=== PATIENT | male | born 1985 | race Caucasian/White ===

== ENCOUNTER 2018-05-29 08:49 | Inpatient (IN) ==
[2018-05-29] MEDS ORDERED: Sod Chloride 0.9% Inj 1,000 ML IV.SIG SCH (09:30)
[2018-05-29] MEDS ORDERED: Sod Chloride 0.9% Inj 800 ML IV.SIG SCH (09:30)
--- NOTE | 2018-05-29 09:54 | ED ---
HPI General Chief complaint: Weakness Stated complaint: Body aches x 2 days Time Seen by Provider: 05/29/18 09:13 History of Present Illness HPI narrative: This is a 32-year-old male with a history of IV heroin use, presents today with complaints of diffuse body aches and weakness. Patient states is been present for 2 days. He reports he has pain all over. Patient also reports pain in his neck and shoulders. He denies any fevers but does state that he feels cold at times. Patient also says he has had palpitations. There is no reported vomiting but he is nauseous. There is no diarrhea. There is no dysuria, frequency, urgency. The patient does report that he has had decreased urination over the last 24 hours because he has not eaten or drink anything. Patient states he last used heroin yesterday. He denies sharing needles. Related Data Home Medications Medication Instructions Recorded Confirmed No Known Home Medications 05/29/18 05/29/18 Allergies Allergy/AdvReac Type Severity Reaction Status Date / Time No Known Allergies Allergy none Uncoded 05/29/18 09:02 Review of Systems ROS: all other systems reviewed are negative Constitutional Reports chills and Denies fever(s) Eyes Denies blurry vision and Denies eye pain ENT Reports neck pain and Reports sore throat (Secondary to dryness. He states it feels scratchy when he swallows.) Cardiovascular Reports chest pain (Pleuritic), Reports rapid heart rate, Reports palpitations and Reports dyspnea Respiratory Denies chest congestion, Denies cough, Denies hemoptysis, Reports pain on inspiration and Reports dyspnea Gastrointestinal Denies abdominal pain, Denies diarrhea, Reports nausea and Denies vomiting Genitourinary Reports other (Decreased urine output.) Musculoskeletal Reports myalgias, Reports arthralgias, Reports muscle weakness (Diffuse muscle weakness), Denies numbness and Denies tingling Neurologic Denies confusion, Denies dizziness, Denies headache(s), Denies focal weakness and Reports weakness (Diffuse) [facility] Medical History Medical History Patient denies medical problems (Acute) Patient denies significant medical history (Acute) Social History Social History Substance History: Active Abuse Second Hand Smoke Exposure: Yes Smoking Status: Current every day smoker Tobacco Type: Cigarettes How Often Do You Have a Drink Containing Alcohol: Never Recent Travel in [facility] within the Last 8 Weeks: No Recent Out of Country Travel within the Last 8 Weeks: No Substance Abuse Detail Heroin: Substance Use Type Other:: and dilaudid Substance Use Status: Active Route Used Substance Abuse: Intravenously Last Used: yesterday Immunization History Tetanus Immunization: Unsure Exam Narrative Exam Narrative: GENERAL: Young thin male in no acute respiratory distress. SKIN: Focused skin assessment warm/dry. Patient has an area of erythema and scabbing to his left face and his left chin and left lateral mouth area. He reports that he had hair that grew into his scab that he blacked out in that area. Patient has no rash or petechiae. There does appear to be track ross in his left AC area. Patient also has a red erythematous area and is volar right forearm. There is an area of eschar with no fluctuant abscess palpated below it. HEAD: Atraumatic. Normocephalic. EYES: Extraocular muscles were intact. No scleral icterus. Slight injection. No drainage. ENT: No nasal bleeding or discharge. Mucous membranes pink and dry. NECK: Trachea midline. Supple. He does have soreness to his eliezer-spinous area and shoulders and of the cervical spine. No exquisite tenderness to the spinous processes. CARDIOVASCULAR: Sinus tachycardia with a rate in the 130s. No murmur appreciated. RESPIRATORY: No accessory muscle use. Clear to auscultation. Breath sounds equal bilaterally. GASTROINTESTINAL: Abdomen soft, non-tender, nondistended. Hepatic and splenic margins not palpable. MUSCULOSKELETAL: No obvious deformities. No clubbing. No cyanosis. No edema. NEUROLOGICAL: Awake and alert. No obvious cranial nerve deficits. Motor grossly within normal limits. Normal speech. Course Initial Documented Vital Signs Temperature 99.2 F 05/29/18 08:52 Pulse Rate 141 H 05/29/18 08:52 Respiratory Rate 18 05/29/18 08:52 Blood Pressure 149/89 H 05/29/18 08:52 Pulse Oximetry 97 05/29/18 08:52 Last Documented Vital Signs Temperature 99.2 F 05/29/18 08:52 Pulse Rate 113 H 05/29/18 10:30 Respiratory Rate 20 05/29/18 10:30 Blood Pressure 124/79 05/29/18 10:30 Pulse Oximetry 95 05/29/18 10:30 Critical Care Time Critical Care Time: Yes Total Critical Care Time: 45 Attestation: Aggregate critical care time was 45 minutes. Time to perform other separately billable procedures was not included in the critical care time. My time did not include minutes spent treating any other patients simultaneously or on activities that did not directly contribute to the patient's treatment. The services I provided to this patient were to treat and/or prevent clinically significant deterioration that could result in: I provided critical care services requiring my management, as noted below: Chart data review, documentation time, medication orders and management, vital sign assessments/reviewing monitor data, ordering and reviewing lab tests, ordering and interpreting/reviewing x-rays and diagnostic studies, care of the patient and discussion of the patient with the admitting physicians. Medical Decision Making MDM Narrative Medical decision making narrative: This is a 32-year-old male with history of IV drug use, presents today with complaints of total body pain. Patient also reports chills with no fever. Patient's white blood cell count is 60,000. His sodium is 128. He has been started on the sepsis pathway. He does meet Sirs criteria. He is been started on vancomycin and Zosyn. Case was discussed with Dr. shefali Marc. Given the fact the patient is extremely ill, the patient will be moved to the main [facility]. He did request we order a CT chest and abdomen pelvis prior to the patient being transferred. Medical Screen Exam Complete: Yes Emergency Medical Condition: Yes Differential Diagnosis Differential Diagnosis: Sepsis versus endocarditis versus metabolic derangement Lab Data Result diagrams: 05/29/18 09:45 05/29/18 09:48 Lab Results 05/29/18 05/29/18 05/29/18 Range/Units 09:45 09:45 09:45 CBC w Diff Slide review pending WBC 60.5 H (4.0-11.0) th/mm3 RBC 5.02 (4.50-5.90) mil/mm3 Hgb 14.4 (13.0-17.0) gm/dL Hct 41.6 (39.0-51.0) % MCV 82.8 (80.0-100.0) fL MCH 28.6 (27.0-34.0) pg MCHC 34.5 (32.0-36.0) % RDW 13.5 (11.6-17.2) % Plt Count 349 (150-450) th/mm3 MPV 8.4 (7.0-11.0) fL WBC Differential Manual diff final Seg Neuts % (Manual) 87 H (16-70) % Band Neuts % (Manual) 9 H (0-6) % Lymphocytes % (Manual) 2 L (9-44) % Metamyelocytes % (Man) 1 (0-1) % Myelocytes % (Man) 1 H (0-0) % Abs Neuts (Manual) 59.3 H (1.8-7.7) th/mm3 Differential Comment . Platelet Estimate Normal (Normal) Platelet Morphology Normal (Normal) PT 13.4 H (9.8-11.6) sec INR 1.3 Ratio APTT 39.4 H (24.3-30.1) sec Sodium (136-145) meq/L Potassium (3.5-5.1) meq/L Chloride (98-107) meq/L Carbon Dioxide (21.0-32.0) meq/L Anion Gap (5-15) meq/L BUN (7-18) mg/dL Creatinine (0.60-1.30) mg/dL Estimated GFR (>89) mL/min POC Glucose (68-110) mg/dl Random Glucose (74-106) mg/dL Lactic Acid 1.8 (0.4-2.0) mmol/L Calcium (8.5-10.1) mg/dL Magnesium (1.5-2.5) mg/dL Total Bilirubin (0.2-1.0) mg/dL AST (15-37) U/L ALT (12-78) U/L Alkaline Phosphatase (45-117) U/L Total Creatine Kinase (39-308) U/L Troponin I (0.02-0.05) ng/mL Total Protein (6.4-8.2) g/dL Albumin (3.4-5.0) g/dL Ur Collection Type Urine Color (Yellw/Straw) Urine Clarity (Clear) Urine pH (5.0-8.5) Ur Specific [place] (1.002-1.035) Urine Protein (Neg-Trace) mg/dL Urine Glucose (UA) (Negative) mg/dL Urine Ketones (Negative) mg/dL Urine Occult Blood (Negative) Urine Nitrate (Negative) Urine Bilirubin (Negative) Urine Urobilinogen (Less than 2) mg/dL Ur Leukocyte Esterase (Negative) Urine WBC (0-5) /hpf Urine WBC Clumps (None) Ur Squamous Epith Cells (0-5) /hpf Micro UA Comment Ur Microscopic Review Urine Culture Comments 05/29/18 05/29/18 05/29/18 Range/Units 09:48 09:48 10:03 CBC w Diff WBC (4.0-11.0) th/mm3 RBC (4.50-5.90) mil/mm3 Hgb (13.0-17.0) gm/dL Hct (39.0-51.0) % MCV (80.0-100.0) fL MCH (27.0-34.0) pg MCHC (32.0-36.0) % RDW (11.6-17.2) % Plt Count (150-450) th/mm3 MPV (7.0-11.0) fL WBC Differential Seg Neuts % (Manual) (16-70) % Band Neuts % (Manual) (0-6) % Lymphocytes % (Manual) (9-44) % Metamyelocytes % (Man) (0-1) % Myelocytes % (Man) (0-0) % Abs Neuts (Manual) (1.8-7.7) th/mm3 Differential Comment Platelet Estimate (Normal) Platelet Morphology (Normal) PT (9.8-11.6) sec INR Ratio APTT (24.3-30.1) sec Sodium 128 L (136-145) meq/L Potassium 4.4 (3.5-5.1) meq/L Chloride 93 L (98-107) meq/L Carbon Dioxide 26.3 (21.0-32.0) meq/L Anion Gap 9 (5-15) meq/L BUN 16 (7-18) mg/dL Creatinine 1.10 (0.60-1.30) mg/dL Estimated GFR 78 L (>89) mL/min POC Glucose 134 H (68-110) mg/dl Random Glucose 134 H (74-106) mg/dL Lactic Acid (0.4-2.0) mmol/L Calcium 8.5 (8.5-10.1) mg/dL Magnesium 1.8 (1.5-2.5) mg/dL Total Bilirubin 1.7 H (0.2-1.0) mg/dL AST 16 (15-37) U/L ALT 31 (12-78) U/L Alkaline Phosphatase 80 (45-117) U/L Total Creatine Kinase 26 L (39-308) U/L Troponin I Less than 0.02 L (0.02-0.05) ng/mL Total Protein 7.8 (6.4-8.2) g/dL Albumin 2.9 L (3.4-5.0) g/dL Ur Collection Type Urine Color (Yellw/Straw) Urine Clarity (Clear) Urine pH (5.0-8.5) Ur Specific [place] (1.002-1.035) Urine Protein (Neg-Trace) mg/dL Urine Glucose (UA) (Negative) mg/dL Urine Ketones (Negative) mg/dL Urine Occult Blood (Negative) Urine Nitrate (Negative) Urine Bilirubin (Negative) Urine Urobilinogen (Less than 2) mg/dL Ur Leukocyte Esterase (Negative) Urine WBC (0-5) /hpf Urine WBC Clumps (None) Ur Squamous Epith Cells (0-5) /hpf Micro UA Comment Ur Microscopic Review Urine Culture Comments 05/29/18 Range/Units 10:16 CBC w Diff WBC (4.0-11.0) th/mm3 RBC (4.50-5.90) mil/mm3 Hgb (13.0-17.0) gm/dL Hct (39.0-51.0) % MCV (80.0-100.0) fL MCH (27.0-34.0) pg MCHC (32.0-36.0) % RDW (11.6-17.2) % Plt Count (150-450) th/mm3 MPV (7.0-11.0) fL WBC Differential Seg Neuts % (Manual) (16-70) % Band Neuts % (Manual) (0-6) % Lymphocytes % (Manual) (9-44) % Metamyelocytes % (Man) (0-1) % Myelocytes % (Man) (0-0) % Abs Neuts (Manual) (1.8-7.7) th/mm3 Differential Comment Platelet Estimate (Normal) Platelet Morphology (Normal) PT (9.8-11.6) sec INR Ratio APTT (24.3-30.1) sec Sodium (136-145) meq/L Potassium (3.5-5.1) meq/L Chloride (98-107) meq/L Carbon Dioxide (21.0-32.0) meq/L Anion Gap (5-15) meq/L BUN (7-18) mg/dL Creatinine (0.60-1.30) mg/dL Estimated GFR (>89) mL/min POC Glucose (68-110) mg/dl Random Glucose (74-106) mg/dL Lactic Acid (0.4-2.0) mmol/L Calcium (8.5-10.1) mg/dL Magnesium (1.5-2.5) mg/dL Total Bilirubin (0.2-1.0) mg/dL AST (15-37) U/L ALT (12-78) U/L Alkaline Phosphatase (45-117) U/L Total Creatine Kinase (39-308) U/L Troponin I (0.02-0.05) ng/mL Total Protein (6.4-8.2) g/dL Albumin (3.4-5.0) g/dL Ur Collection Type Clean catch Urine Color Yellow (Yellw/Straw) Urine Clarity Clear (Clear) Urine pH 5.5 (5.0-8.5) Ur Specific [place] 1.010 (1.002-1.035) Urine Protein Negative (Neg-Trace) mg/dL Urine Glucose (UA) Negative (Negative) mg/dL Urine Ketones Negative (Negative) mg/dL Urine Occult Blood Negative (Negative) Urine Nitrate Negative (Negative) Urine Bilirubin Negative (Negative) Urine Urobilinogen 0.2 (Less than 2) mg/dL Ur Leukocyte Esterase Negative (Negative) Urine WBC 6-8 H (0-5) /hpf Urine WBC Clumps Occasional H (None) Ur Squamous Epith Cells 0-5 (0-5) /hpf Micro UA Comment Culture indicated Ur Microscopic Review Microscopic reviewed Urine Culture Comments Culture indicated Imaging Data Radiologist's impression: Chest X-Ray 05/29/18 09:24 CONCLUSION: No acute cardiopulmonary disease. Chest CT 05/29/18 11:13 CONCLUSION: 1. No focal pneumonia identified. 2. Mildly enlarged nodes in the axillary eulalia chain. There is a 2 cm node in the right axilla. There is a 1.6 cm node in the left axilla. Discharge Plan Discharge Disposition Patient Disposition: 30 Still Patient Discharge Details Diagnosis: Sepsis, Hyponatremia, Drug abuse, IV, Cellulitis of forearm, right Physicians Team ED Provider: Charly Munoz Primary Care Provider: Patrick Turner Attending Provider: Zaire Marc Discharge Interventions Interventions: Vital Signs Last Done: 05/29/18 10:30 Status ED Status: Admitted Patient
--- NOTE | 2018-05-29 10:16 | XR ---
EXAM DATE: 05/29/2018 10:12 AM EDT AGE/SEX: 32 years / Male INDICATIONS: General weakness. CLINICAL DATA: This is the patient's initial encounter. Patient reports that signs and symptoms have been present for 2 days and indicates a pain score of 8/10. MEDICAL/SURGICAL HISTORY: . Patient states weakness and pain all over for two days. No history of heart or lung problems. None. COMPARISON: No prior exams available for comparison. FINDINGS: A single AP view of the chest demonstrates the lungs to be symmetrically aerated without evidence of mass, infiltrate or effusion. The cardiomediastinal contours are unremarkable. Osseous structures a re intact. CONCLUSION: No acute cardiopulmonary disease. Electronically signed by: Dano Joiner MD 05/29/2018 10:15 AM EDT
[2018-05-29 10:21] LABS: Chloride 93 meq/L (98-107); Potassium 4.4 meq/L (3.5-5.1); Sodium 128 meq/L (136-145)
[2018-05-29 10:21] LABS: Hematocrit 41.6 % (39.0-51.0); Hemoglobin 14.4 gm/dL (13.0-17.0); Mean Corpuscular HGB Conc 34.5 % (32.0-36.0); Mean Corpuscular Hemoglobin 28.6 pg (27.0-34.0); Mean Corpuscular Volume 82.8 fL (80.0-100.0); Mean Platelet Volume 8.4 fL (7.0-11.0); Platelet Count 349 th/mm3 (150-450); Red Blood Count 5.02 mil/mm3 (4.50-5.90); Red Cell Distribution Width 13.5 % (11.6-17.2); White Blood Count 60.5 th/mm3 (4.0-11.0)
[2018-05-29 10:24] LABS: Albumin 2.9 g/dL (3.4-5.0); Anion Gap 9 meq/L (5-15); Calcium 8.5 mg/dL (8.5-10.1); Carbon Dioxide 26.3 meq/L (21.0-32.0); Glucose,Random 134 mg/dL (74-106); Magnesium 1.8 mg/dL (1.5-2.5)
[2018-05-29] MEDS ORDERED: Morphine Inj 4 MG/ML Vial IV.PUSH ONE (10:24)
[2018-05-29 10:25] LABS: Blood Urea Nitrogen 16 mg/dL (7-18)
[2018-05-29 10:26] LABS: Activated Partial Thrombo Time 39.4 sec (24.3-30.1); INR 1.3 Ratio; Prothrombin Time 13.4 sec (9.8-11.6)
[2018-05-29 10:27] LABS: Alanine Aminotransferase 31 U/L (12-78); Aspartate Aminotransferase 16 U/L (15-37)
[2018-05-29 10:28] LABS: Glomerular Filtration Rate 78 mL/min (>89)
[2018-05-29 10:29] LABS: Total Protein 7.8 g/dL (6.4-8.2)
[2018-05-29 10:30] LABS: Alkaline Phosphatase 80 U/L (45-117)
[2018-05-29 10:37] LABS: Creatine Kinase 26 U/L (39-308)
[2018-05-29 10:42] LABS: Bilirubin,Urine Negative (Negative); Clarity,Urine Clear (Clear); Color,Urine Yellow (Yellw/Straw); Glucose,Urine (UA) Negative (Negative); Leukocyte Esterase,Urine Negative (Negative); Nitrite,Urine Negative (Negative); PH,Urine 5.5 (5.0-8.5); Urobilinogen,Urine 0.2 mg/dL (Less than 2)
[2018-05-29 10:48] LABS: Squamous Epithelial Cell,Urine 0-5 /hpf (0-5)
[2018-05-29] MEDS ORDERED: Piperacil/Tazo 4.5 GM Premix 4.5 GM/100 ML BAG IV.SIG ONE (10:55)
[2018-05-29] MEDS ORDERED: Vancomycin Inj 1 GM/200 ML PIGGYBACK IV.SIG ONE (10:55)
[2018-05-29 11:02] LABS: Lymphocytes 2 % (9-44); Metamyelocytes 1 % (0-1); Myelocytes 1 % (0-0)
[2018-05-29 11:03] LABS: Platelet Estimate Normal (Normal); Platelet Morphology Normal (Normal)
[2018-05-29] MEDS ORDERED: Vancomycin Inj 1,000 MG in Sodium Chlor 0.9% Inj 250 ML IV.SIG ONE (12:00)
--- NOTE | 2018-05-29 12:06 | CT ---
EXAM DATE: 05/29/2018 11:58 AM EDT AGE/SEX: 32 years / Male INDICATIONS: Body aches, cough and fever. WBC = 60.5 CLINICAL DATA: This is the patient's initial encounter. Patient reports that signs and symptoms have been present for 2 days and indicates a pain score of 8/10. MEDICAL/SURGICAL HISTORY: None. None. RADIATION DOSE: 7.09 CTDI (mGy) ; Combined studies COMPARISON: No prior exams available for comparison. TECHNIQUE: Multiple contiguous axial images were obtained through the chest during bolus infusion of 95 ml Omnipaque 350 (iohexol) nonionic water-soluble contrast as a cumulative dose for multiple exa ms. Images were obtained in suspended respiration using multiple row detector helical technique. U sing automated exposure control and adjustment of the mA and/or kV according to patient size, radiati on dose was kept as low as reasonably achievable to obtain optimal diagnostic quality images. DICOM format image data is available electronically for review and comparison. FINDINGS: Lungs: The lungs are symmetrically aerated. No infiltrates or nodular densities are seen. Mediastinum: There is good visualization of the great vessels of the middle mediastinum. No evidenc e of mediastinal or hilar adenopathy/mass. Pleurae: No evidence of focal thickening or pleural effusion. Axillae: The examination demonstrates a single 2 cm node in the right axilla. There is a 1.6 cm node in the left axilla This is nonspecific in appearance. Bony Structures: Unremarkable. Miscellaneous: The examination was extended to include the upper abdomen, and both adrenal glands ar e normal in size and configuration. Post Contrast: No abnormal areas of enhancement seen. CONCLUSION: 1. No focal pneumonia identified. 2. Mildly enlarged nodes in the axillary eulalia chain. There is a 2 cm node in the right axilla. Ther e is a 1.6 cm node in the left axilla. Electronically signed by: Rico Oleary MD 05/29/2018 12:04 PM EDT
--- NOTE | 2018-05-29 12:30 | CT ---
EXAM DATE: 05/29/2018 11:58 AM EDT AGE/SEX: 32 years / Male INDICATIONS: Body aches, cough and fever. WBC = 60.5 CLINICAL DATA: This is the patient's initial encounter. Patient reports that signs and symptoms have been present for 2 days and indicates a pain score of 9/10. MEDICAL/SURGICAL HISTORY: None. None. ORAL CONTRAST: No oral contrast ingested. RADIATION DOSE: 7.09 CTDI (mGy) COMPARISON: No prior exams available for comparison. TECHNIQUE: Multiple contiguous axial images were obtained through the abdomen and pelvis following b olus infusion of 7.09 ml Omnipaque 350 (iohexol) nonionic water-soluble contrast as a cumulative do se for multiple exams. No oral contrast ingested. Using automated exposure control and adjustment of the mA and/or kV according to patient size, radiation dose was kept as low as reasonably achievable to obtain optimal diagnostic quality images. DICOM format image data is available electronically for review and comparison. FINDINGS: Lower Lungs: The visualized lower lungs are clear. Liver: The liver has a homogeneous density without space-occupying lesion. There is no dilation of th e biliary tree. The gallbladder is unremarkable in appearance. Spleen: Homogeneous density without enlargement. Pancreas: Unremarkable without mass or calcification. Kidneys: Normal in size and shape. There is a wedge-shaped area of decreased attenuation involving t he posterior lateral right mid kidney. There is overlying cortical thinning. There are no renal calcu li. No evidence of mass or hydronephrosis. Adrenal Glands: Unremarkable. Aorta: The aorta and proximal iliac vessels are grossly unremarkable without aneurysmal dilation. Bowel/Mesentery: No oral contrast was given limiting the sensitivity of the exam. The bowel loops ar e grossly unremarkable. The cecum and sigmoid colon have a normal configuration. Abdominal Wall: Intact. Retroperitoneum: No evidence of adenopathy in the retrocrural, para-aortic, or deep pelvic regions. Bladder: Contours are smooth. Reproductive Organs: No abnormal masses or calcifications seen. Inguinal: The inguinal region is unremarkable without evidence of adenopathy. Bony Structures: Unremarkable. CONCLUSION: 1. Focal wedge-shaped area of decreased attenuation involving the posterior lateral right mid knee w ith overlying apparent cortical thinning. This is nonspecific and could represent an area of scarring or infarction. The kidneys are otherwise unremarkable. 2. Unremarkable bowel gas pattern. 3. Unremarkable appearing gallbladder. Electronically signed by: Dano Joiner MD 05/29/2018 12:29 PM EDT
[2018-05-29] MEDS ORDERED: Bisacodyl 10 MG Supp RECTAL PRN (12:34)
[2018-05-29] MEDS ORDERED: Acetaminophen 325 MG Tablet PO PRN (12:34)
--- NOTE | 2018-05-29 13:21 | ECG ---
Date Performed: 05/29/2018 Time Performed: 09:01:09 PTAGE: 32 years EKG: SINUS TACHYCARDIA WITH SHORT SD INTERVAL NONSPECIFIC ST & T-WAVE ABNORMALITY ABNORMAL ECG I NTERPRETATION BASED ON A DEFAULT AGE OF 40 YEARS PREVIOUS TRACING : 06/11/2008 22.32 DOCTOR: Rustam Romo Interpretating Date/Time 05/29/2018 13:19:25
--- NOTE | 2018-05-29 13:52 | ECHRPT ---
Indication: Sepsis Possible Endocarditis CONCLUSIONS No regional wall motion abnormalities are present. Normal left ventricular size. Wall thickness is n ormal. The left ventricular systolic function is normal with an estimated ejection fraction in the range of 60-65%. There is trace tricuspid valve regurgitation. The estimated pulmonary arterial pressure is 38 mmHg. BP: / HR: Rhythm: MEASUREMENTS (Male / Female) Normal Values Technical Quality:Good 2D ECHO LV Diastolic Diameter PLAX 4.6 cm 4.2 - 5.9 / 3.9 - 5.3 cm LV Systolic Diameter PLAX 3.0 cm IVS Diastolic Thickness 0.8 cm 0.6 - 1.0 / 0.6 - 0.9 cm LVPW Diastolic Thickness 0.8 cm 0.6 - 1.0 / 0.6 - 0.9 cm LV Relative Wall Thickness 0.3 RV Internal Dim ED PLAX 2.3 cm LVOT Diameter 1.9 cm Aortic Root Diameter 2.4 cm LA Systolic Diameter LX 3.0 cm 3.0 - 4.0 / 2.7 - 3.8 cm M-MODE AV Cusp Separation MM 1.6 cm DOPPLER AV Peak Velocity 164.0 cm/s AV Peak Gradient 10.8 mmHg LVOT Peak Velocity 132.0 cm/s LVOT Peak Gradient 7.0 mmHg AV Area Cont Eq pk 2.3 cm Mitral E Point Velocity 93.3 cm/s Mitral A Point Velocity 65.2 cm/s Mitral E to A Ratio 1.4 LV E' Lateral Velocity 14.9 cm/s Mitral E to LV E' Lateral Ratio 6.3 LV E' Septal Velocity 14.4 cm/s Mitral E to LV E' Septal Ratio 6.5 TR Peak Velocity 262.0 cm/s TR Peak Gradient 27.5 mmHg Right Atrial Pressure 10.0 mmHg Pulmonary Artery Systolic Pressu 37.5 mmHg Right Ventricular Systolic Press 37.5 mmHg PV Peak Velocity 130.0 cm/s PV Peak Gradient 6.8 mmHg FINDINGS LEFT VENTRICLE No regional wall motion abnormalities are present. Normal left ventricular size. Wall thickness is n ormal. The left ventricular systolic function is normal with an estimated ejection fraction in the range of 60-65%. RIGHT VENTRICLE Normal right ventricular size and systolic function. LEFT ATRIUM The left atrial size is normal. RIGHT ATRIUM The right atrial size is normal. ATRIAL SEPTUM Normal atrial septal thickness without atrial level shunting by limited color doppler interrogation. AORTA The aortic root and proximal ascending aorta are normal in size on limited imaging. MITRAL VALVE Structurally normal mitral valve. No mitral valve stenosis or regurgitation. AORTIC VALVE Trileaflet aortic valve. No aortic valve stenosis or regurgitation. TRICUSPID VALVE There is trace tricuspid valve regurgitation. The estimated pulmonary arterial pressure is 38 mmHg. PULMONARY VALVE No pulmonary valve regurgitation or stenosis. VESSELS The inferior vena cava is normal in size. PERICARDIUM No pericardial effusion. Dimitri Beal MD (Electronically Signed) Final Date:29 May 2018 13:51
[2018-05-29] MEDS ORDERED: Potassium Phosphate 500 MG Soluble Tablet PO PRN ×2 (19:35)
[2018-05-29] MEDS ORDERED: Potassium Chlor 20 mEq Premix 20 MEQ/100 ML PIGGYBACK IV.SIG PRN ×2 (19:35)
[2018-05-29] MEDS ORDERED: Magnesium Sulfate Inj 4 GM in Sodium Chlor 0.9% Inj 92 ML IV.SIG PRN (19:35)
[2018-05-29] MEDS ORDERED: Magnesium Oxide 400 MG Tablet PO PRN (19:35)
[2018-05-29] MEDS ORDERED: Potassium Chlor 40 mEq Premix 40 MEQ/100 ML PIGGYBACK IV.SIG PRN ×2 (19:35)
[2018-05-29] MEDS ORDERED: Magnesium Sulfate Inj 2 GM in Sodium Chlor 0.9% Inj 96 ML IV.SIG PRN (19:35)
[2018-05-29] MEDS ORDERED: Potassium Chloride 25 MEQ Effervescent Tablet PO PRN (19:35)
[2018-05-29] MEDS ORDERED: Sodium Phosphate Inj 30 MMOL in Sodium Chlor 0.9% Inj 250 ML IV.SIG PRN (19:35)
[2018-05-29] MEDS ORDERED: Potassium Phosphate Inj 30 MMOL in Sodium Chlor 0.9% Inj 250 ML IV.SIG PRN (19:35)
--- NOTE | 2018-05-29 19:46 | P.HPCC ---
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 He admits that last injection of heroin was yesterday. Denies fever however felt palpitations. Had been ill for last 2 days. Patient was tachycardic in the ER. White count was 60.5 with left shift. Sodium was 128. Patient also has a superficial abscess right forearm volar aspect. CT of the abdomen shows probable right kidney infarct. Clinical picture consistent with probable infective endocarditis and severe sepsis and critical care medicine was consulted for admission. A 2D echo done in [place] emergency department shows normal EF and no vegetations reported. ANTHONY had been ordered I evaluated the patient in the ICU. He appears critically ill malnourished tachycardic. He received total 2 L normal saline bolus and now receiving maintenance IV fluids. He had been started on vancomycin and Zosyn. ID had been consulted, I will get a ANTHONY. At this time he is very critical we will watch closely for withdrawal also. - Diagnosis (1) Severe sepsis (2) Infarction of kidney (3) Leukocytosis (4) Abscess of right forearm (5) Cellulitis of forearm, right Inpatient Certification: I certify that the inpatient services were ordered in accordance with Medicare regulations governing the order. This includes certification that hospital inpatient services are reasonable and necessary and in the case of services not specified as inpatient-only under 42 CFR 419.22(n), that they are appropriately provided as inpatient services in accordance to with the 2-midnight benchmark under 43 CFR 412.3(e) Estimated Total Length of Stay (Days): 7 Plans for Post Hospital Care: Not yet determined Review of Systems All other systems reviewed negative except as stated in HPI PMFSH - History History Provided By: Patient - Medical History Medical History: Medical History (Last Updated 05/29/18 @ 09:03 by Lucila Lyon RN) Patient denies medical problems Patient denies significant medical history - Tobacco History Second Hand Smoke Exposure: Yes Tobacco Use In Past 30 Days: Yes Smoking Status: Current every day smoker Tobacco Type: Cigarettes - Alcohol History How Often Do You Have a Drink Containing Alcohol: Never - Substance Use History Substance History: No History of Abuse, Active Abuse - Substance Use Type Heroin Type: and dilaudid Status: Active Route Used: Intravenously Last Used: yesterday Reason for Use: Get High - Travel History Recent Travel in the [place] Within the Last 8 Weeks: No Recent Travel Out of the Country Within the Last 8 Weeks: No - Immunization History Tetanus Immunization: Unsure Medications and Allergies Active Medications: Active Medications Acetaminophen (Tylenol) 650 mg PO Q6H PRN PRN Reason: PAIN 1-10 AND/OR FEVER >101F Al Hydroxide/Mg Hydroxide (Milk Of [place]) 30 ml PO Q12H PRN PRN Reason: Mild Constipation Albuterol (Duoneb Neb (Prn)) 1 ampul NEB Q2HR NEB PRN PRN Reason: WHEEZING Bisacodyl (Dulcolax Supp) 10 mg RECTAL DAILY PRN PRN Reason: SEVERE CONSITIPATION Chlorhexidine Gluconate (Chlorhexidine 2% Cloth) 3 pack TOPICAL DAILY@0400 TOSHIA Stop: 06/04/18 03:59 Chlorhexidine Gluconate (Chlorhexidine 2% Cloth) 3 pack TOPICAL DAILY@0400 PRN PRN Reason: Extra cloth needed Stop: 06/04/18 03:59 Famotidine (Pepcid) 20 mg PO BID TOSHIA Sodium Chloride (Ns Inj) 1,000 mls @ 0 mls/hr IV.SIG .Q0M TOSHIA Last Infusion: 05/29/18 10:37 Dose: Infused Sodium Chloride (Ns Inj) 800 mls @ 0 mls/hr IV.SIG .Q0M TOSHIA Last Infusion: 05/29/18 11:26 Dose: Infused Potassium Chloride/Sodium Chloride (Ns + Kcl 20 Meq Inj) 1,000 mls @ 150 mls/ hr IV.CONT .Q6H40M TOSHIA Last Admin: 05/29/18 13:43 Dose: 150 mls/hr Piperacillin/Tazobactam/Dextrose (Zosyn 4.5 Gm Premix) 4.5 gm in 100 mls @ 200 mls/hr IV.SIG Q6H TOSHIA Vancomycin HCl 1,500 mg/ (Sodium Chloride) 515 mls @ 250 mls/hr IV.SIG Q12H TOSHIA Potassium Chloride (Kcl 40 Meq Premix Inj) 40 meq in 100 mls @ 25 mls/hr IV.SIG Q2H PRN PRN Reason: For Potassium 2.8 - 3.2 mEq/L Potassium Chloride (Kcl 20 Meq Premix Inj) 20 meq in 100 mls @ 50 mls/hr IV.SIG Q2H PRN PRN Reason: For Potassium 3.3 - 3.5 mEq/L Potassium Chloride (Kcl 40 Meq Premix Inj) 40 meq in 100 mls @ 25 mls/hr IV.SIG UNSCH PRN PRN Reason: For Potassium 3.3 - 3.5 mEq/L Sodium Phosphate 30 mmol/ (Sodium Chloride) 260 mls @ 42 mls/hr IV.SIG UNSCH PRN PRN Reason: For Phosphorus < 2.5 mg/dL Potassium Phosphate 30 mmol/ (Sodium Chloride) 260 mls @ 42 mls/hr IV.SIG UNSCH PRN PRN Reason: SEE LABEL COMMENTS Magnesium Sulfate 4 gm/ Sodium (Chloride) 100 mls @ 50 mls/hr IV.SIG UNSCH PRN PRN Reason: For Magnesium 0.9 - 1.1 mg/dL Potassium Chloride (Kcl 20 Meq Premix Inj) 20 meq in 100 mls @ 50 mls/hr IV.SIG Q2H PRN PRN Reason: For Potassium 2.8 - 3.2 mEq/L Magnesium Sulfate 2 gm/ Sodium (Chloride) 100 mls @ 50 mls/hr IV.SIG UNSCH PRN PRN Reason: For Magnesium 1.2 - 1.6 mg/dL Lactulose (Lactulose Liq) 30 ml PO DAILY PRN PRN Reason: SEVERE CONSITIPATION Magnesium Oxide (Mag-Ox) 800 mg PO UNSCH PRN PRN Reason: For Magnesium 1.2 - 1.6 mg/dL Ondansetron HCl (Zofran Inj) 4 mg IV.PUSH Q6H PRN PRN Reason: NAUSEA OR VOMITING Oxycodone/Acetaminophen (Percocet 5/325 Mg) 2 tab PO Q4H PRN PRN Reason: PAIN SCALE 1 TO 5 Last Admin: 05/29/18 17:05 Dose: 2 tab Potassium Bicarb/Potassium Chloride (K-Lyte Cl Eff) 50 meq PO UNSCH PRN PRN Reason: For Potassium 3.3 - 3.5 mEq/L Potassium Phosphate (K-Phos Original) 2,000 mg PO Q4H PRN PRN Reason: Phosphorus Less Than 2.5 mg/dL Potassium Phosphate (K-Phos Original) 2,000 mg PO UNSCH PRN PRN Reason: SEE LABEL COMMENTS Senna/Docusate Sodium (Leonor-Colace) 1 tab PO BID TOSHIA Sennosides (Senokot) 17.2 mg PO Q12H PRN PRN Reason: Moderate Constipation Sodium Chloride (Ns Flush) 2 ml IV.FLUSH BID TOSHIA Sodium Chloride (Ns Flush) 2 ml IV.FLUSH PRN PRN PRN Reason: FLUSH AFTER USING IV ACCESS Allergies Allergy/AdvReac Type Severity Reaction Status Date / Time No Known Allergies Allergy none Uncoded 05/29/18 14:40 Home Medications Medication Instructions Recorded Confirmed Type No Known Home Medications 05/29/18 05/29/18 History Results - Labs CBC & Chem 7: 05/29/18 09:45 05/29/18 09:48 Labs: Short CBC 05/29/18 Range/Units 09:45 WBC 60.5 H (4.0-11.0) th/mm3 Hgb 14.4 (13.0-17.0) gm/dL Hct 41.6 (39.0-51.0) % Plt Count 349 (150-450) th/mm3 BMP 05/29/18 09:48 Sodium 128 L Potassium 4.4 Chloride 93 L Carbon Dioxide 26.3 BUN 16 Creatinine 1.10 Calcium 8.5 Cardiac Enzymes 05/29/18 Range/Units 09:48 Total Creatine Kinase 26 L (39-308) U/L Troponin I Less than 0.02 L (0.02-0.05) ng/mL Liver Function 05/29/18 Range/Units 09:48 Total Bilirubin 1.7 H (0.2-1.0) mg/dL AST 16 (15-37) U/L ALT 31 (12-78) U/L Alkaline Phosphatase 80 (45-117) U/L Albumin 2.9 L (3.4-5.0) g/dL Urine 05/29/18 Range/Units 10:16 Urine Color Yellow (Yellw/Straw) Urine Clarity Clear (Clear) Urine pH 5.5 (5.0-8.5) Ur Specific [place] 1.010 (1.002-1.035) Urine Protein Negative (Neg-Trace) mg/dL Urine Glucose (UA) Negative (Negative) mg/dL - Imaging Impressions Chest X-Ray 05/29/18 09:24 CONCLUSION: No acute cardiopulmonary disease. Abdomen/Pelvis CT 05/29/18 11:13 CONCLUSION: 1. Focal wedge-shaped area of decreased attenuation involving the posterior lateral right mid knee with overlying apparent cortical thinning. This is nonspecific and could represent an area of scarring or infarction. The kidneys are otherwise unremarkable. 2. Unremarkable bowel gas pattern. 3. Unremarkable appearing gallbladder. Chest CT 05/29/18 11:13 CONCLUSION: 1. No focal pneumonia identified. 2. Mildly enlarged nodes in the axillary eulalia chain. There is a 2 cm node in the right axilla. There is a 1.6 cm node in the left axilla. Exam Vital signs: Vital Signs 05/29/18 08:52 05/29/18 09:05 05/29/18 09:24 Temperature 99.2 F Pulse Rate 141 H 133 H 130 H Respiratory Rate 18 20 Blood Pressure 149/89 H 135/84 Pulse Oximetry 97 99 97 05/29/18 10:30 05/29/18 12:35 05/29/18 14:27 Temperature 98.8 F Pulse Rate 113 H 103 H 106 H Respiratory Rate 20 16 16 Blood Pressure 124/79 115/56 L 102/58 L Pulse Oximetry 95 96 05/29/18 15:30 05/29/18 16:30 05/29/18 17:30 Temperature 98.3 F Pulse Rate 114 H 112 H 116 H Respiratory Rate 20 16 16 Blood Pressure 112/67 112/58 L 119/66 Pulse Oximetry 97 95 96 05/29/18 18:30 Temperature Pulse Rate 110 H Respiratory Rate 16 Blood Pressure 103/56 L Pulse Oximetry 95 Intake & Output 05/29/18 05/29/18 05/30/18 06:59 18:59 06:59 Intake Total 2149 / 0 Balance 215 / 2149 Weight 58.6 kg 59.1 kg Intake: IV 2149 / 2149 Zosyn 4.5 GM Premix 4.5 gm In 100 / 100 100 ml @ 200 mls/hr IV.SIG ONCE ONE Rx#:[id number] NS Inj 800 ML @ Wide Open IV. 1800 / 1800 SIG .Q0M TOSHIA Rx#:[id number] Vancomycin Inj 1,000 MG In NS 250 / 250 Inj 250 ML @ 250 mls/hr IV.SIG ONCE ONE Rx#:[id number] Other: Weight On Admission 59.1 kg Narrative: GENERAL: Young poorly nourished male who appears ill SKIN: warm/dry. Track ross in his right and left AC area. Skin blister/ abscess volar right forearm. HEAD: Atraumatic. Normocephalic. EYES: Extraocular muscles were intact. No scleral icterus. ENT: Oral mucosa is dry NECK: Trachea midline. Supple. CARDIOVASCULAR: Sinus tachycardia with a rate in the 120s. Systolic murmur at the left sternal border RESPIRATORY: No accessory muscle use. Clear to auscultation. Breath sounds equal bilaterally. GASTROINTESTINAL: Abdomen soft, non-tender, nondistended. Hepatic and splenic margins not palpable. MUSCULOSKELETAL: See skin exam above no obvious deformities. No clubbing. No cyanosis. No edema. NEUROLOGICAL: Awake and alert. No obvious cranial nerve deficits. Motor grossly within normal limits. Normal speech. Septic Shock Reassessment Septic shock perfusion: reassessment completed Caprini VTE Risk Assessment Caprini VTE Risk Assessment: Moderate/High Risk (score >= 2) Caprini Risk Assessment Model: Point Value = 1 Point Value = 2 Point Value = 3 Point Value = 5 Age 41-60 Minor surgery BMI > 25 kg/m2 Swollen legs Varicose veins or History of unexplained or recurrent spontaneous Oral contraceptives or hormone replacement Sepsis (< 1 month) Serious lung disease, including pneumonia (< 1 month) Abnormal pulmonary function Acute myocardial infarction Congestive heart failure (< 1 month) History of inflammatory bowel disease Medical patient at bed rest Age 61-74 Arthroscopic surgery Major open surgery (> 45 min) Laparoscopic surgery (> 45 min) Malignancy Confined to bed (> 72 hours) Immobilizing plaster cast Central venous access Age >= 75 History of VTE Family history of VTE Factor V Leiden Prothrombin [id number] Lupus anticoagulant Anticardiolipin antibodies Elevated serum homocysteine Heparin-induced thrombocytopenia Other congenital or acquired thrombophilia Stroke (< 1 month) Elective arthroplasty Hip, pelvis, or leg fracture Acute spinal cord injury (< 1 month) Prophylaxis Regimen: Total Risk Factor Score Risk Level Prophylaxis Regimen 0-1 Low Early ambulation 2 Moderate Order ONE of the following: *Sequential Compression Device (SCD) *Heparin 5000 units SQ BID 3-4 Higher Order ONE of the following medications: *Heparin 5000 units SQ TID *Enoxaparin/Lovenox 40 mg SQ daily (WT < 150 kg, CrCl > 30 mL/min) *Enoxaparin/Lovenox 30 mg SQ daily (WT < 150 kg, CrCl > 10-29 mL/min) *Enoxaparin/Lovenox 30 mg SQ BID (WT < 150 kg, CrCl > 30 mL/min) AND/OR *Sequential Compression Device (SCD) 5 or more Highest Order ONE of the following medications: *Heparin 5000 units SQ TID (Preferred with Epidurals) *Enoxaparin/Lovenox 40 mg SQ daily (WT < 150 kg, CrCl > 30 mL/min) *Enoxaparin/Lovenox 30 mg SQ daily (WT < 150 kg, CrCl > 10-29 mL/min) *Enoxaparin/Lovenox 30 mg SQ BID (WT < 150 kg, CrCl > 30 mL/min) AND *Sequential Compression Device (SCD) Assessment and Plan - Problem List (1) Severe sepsis Code(s): A41.9 - Sepsis, unspecified organism; R65.20 - Severe sepsis without septic shock Status: Acute (2) Infarction of kidney Code(s): N28.0 - Ischemia and infarction of kidney Status: Acute (3) Leukocytosis Code(s): D72.829 - Elevated white blood cell count, unspecified Status: Acute (4) Abscess of right forearm Code(s): L02.413 - Cutaneous abscess of right upper limb Status: Acute (5) Cellulitis of forearm, right Code(s): L03.113 - Cellulitis of right upper limb Status: Acute - Assessment and Plan Plan: NEURO: IV heroin use -Admits to daily heroin use -Watch closely for withdrawal -Need counseling/treatment -Supplement multivitamin thiamine -CT of the head to evaluate for septic emboli RESP: -DuoNeb every 2 hours as needed -Aggressive pulmonary toilet CV: Sinus tachycardia SIRS Suspected infective endocarditis -Normal saline IV fluids 2 L bolus and maintenance fluid at 84 mL/h -2D echo shows normal ejection fraction, trace TR -ANTHONY ordered to rule out infective endocarditis -Antibiotics as below GI: -N.p.o. until clinically more stable, IV famotidine : Right renal infarct Hyponatremia -Monitor renal function closely. -IV hydration as above -Low-sodium correction ID: Severe sepsis Suspected infective endocarditis Right forearm abscess -Antibiotics with vancomycin and Zosyn -Blood cultures have been ordered, ID consult -If right forearm abscess not improving with antibiotics will need hand surgery evaluation for I&D -Abscess appears superficial HEME: Leukocytosis secondary to sepsis -Monitor CBC, coags ENDO: -Electrolyte replacement per protocol PROPH: -Bilateral lower extremity SCDs. Lovenox if CT head is negative/famotidine LINES: -Utilize peripheral IVs, central line if needed CC time 42 min Code Status: Full Discussed Condition With: Dr. Munoz H&P: Quality - VTE Deep Vein Thrombosis/Pulmonary Embolism Present on Admission: No
[2018-05-29] MEDS: Piperacil/Tazo 4.5 GM Premix 4.5 GM/100 ML BAG IV.SIG SCH (19:56)
[2018-05-29] MEDS: Senna/Docusate Sodium 8.6/50 MG Tablet PO SCH (20:05)
[2018-05-29] MEDS: Famotidine 20 MG Tablet PO SCH (20:05)
[2018-05-29 21:44] LABS: Mean Corpuscular HGB Conc 33.4 % (32.0-36.0); Mean Corpuscular Hemoglobin 27.8 pg (27.0-34.0); Mean Corpuscular Volume 83.1 fL (80.0-100.0); Mean Platelet Volume 7.6 fL (7.0-11.0); Platelet Count 301 th/mm3 (150-450); Red Cell Distribution Width 14.5 % (11.6-17.2); White Blood Count 49.2 th/mm3 (4.0-11.0)
[2018-05-29] MEDS: Vancomycin Inj 1,500 MG in Sodium Chlor 0.9% Inj 500 ML IV.SIG SCH (22:23)
[2018-05-29] MEDS: Multivitamin Inj 10 ML, Thiamine Inj 100 MG, Folic Acid Inj 1 MG in Sodium Chlor 0.9% I... IV.SIG SCH (22:24)
--- NOTE | 2018-05-29 22:48 | CT ---
EXAM DATE: 05/29/2018 10:43 PM EDT AGE/SEX: 32 years / Male INDICATIONS: Dizziness. CLINICAL DATA: This is the patient's initial encounter. Patient reports that signs and symptoms have been present for 1 day and indicates a pain score of 10/10. MEDICAL/SURGICAL HISTORY: . IV drug user. None. RADIATION DOSE: 56.35 CTDI (mGy) COMPARISON: No prior exams available for comparison. TECHNIQUE: CT of the head without contrast. Using automated exposure control and adjustment of the mA and/or kV according to patient size, radiation dose was kept as low as reasonably achievable to ob tain optimal diagnostic quality images. DICOM format image data is available electronically for revi ew and comparison. FINDINGS: Cerebrum: The ventricles are normal for age. No evidence of midline shift, mass lesion, hemorrhage or acute infarction. No extraaxial fluid collections are seen. Posterior Fossa: The cerebellum and brainstem are intact. The 4th ventricle is midline. The cerebe llopontine angle is unremarkable. Extracranial: The visualized portion of the orbits is intact. Skull: The calvaria is intact. No evidence of skull fracture. CONCLUSION: 1. No acute intracranial abnormalities. . Electronically signed by: Gigi Dejesus MD 05/29/2018 10:46 PM EDT
[2018-05-30] MEDS: Piperacil/Tazo 4.5 GM Premix 4.5 GM/100 ML BAG IV.SIG SCH ×4 (00:59→17:49)
[2018-05-30] MEDS ORDERED: Chlorhexidine Gluconate 2% 1 Pack (2 Cloths) TOPICAL PRN (04:00)
[2018-05-30] MEDS: Chlorhexidine Gluconate 2% 1 Pack (2 Cloths) TOPICAL SCH (04:08)
[2018-05-30 04:53] LABS: Eos # (Auto) 0.6 th/mm3 (0.0-0.4); Eos % (Auto) 1.7 % (0.0-4.0); Hematocrit 34.4 % (39.0-51.0); Hemoglobin 11.7 gm/dL (13.0-17.0); Lymph # (Auto) 1.1 th/mm3 (1.0-4.8); Lymph % (Auto) 2.9 % (9.0-44.0); Mean Corpuscular HGB Conc 33.9 % (32.0-36.0); Mean Corpuscular Volume 82.6 fL (80.0-100.0); Mean Platelet Volume 7.4 fL (7.0-11.0); Mono # (Auto) 0.5 th/mm3 (0.0-0.9); Mono % (Auto) 1.3 % (0.0-8.0); Neut # (Auto) 35.4 th/mm3 (1.8-7.7); Neut % (Auto) 94.1 % (16.0-70.0); Platelet Count 264 th/mm3 (150-450); Red Blood Count 4.17 mil/mm3 (4.50-5.90); Red Cell Distribution Width 14.6 % (11.6-17.2); White Blood Count 37.6 th/mm3 (4.0-11.0)
[2018-05-30 05:10] LABS: INR 1.2 Ratio; Prothrombin Time 11.7 sec (9.8-11.6)
[2018-05-30 05:16] LABS: Albumin 2.2 g/dL (3.4-5.0); Anion Gap 7 meq/L (5-15); Aspartate Aminotransferase 13 U/L (15-37); Blood Urea Nitrogen 9 mg/dL (7-18); Calcium 7.9 mg/dL (8.5-10.1); Carbon Dioxide 24.3 meq/L (21.0-32.0); Chloride 108 meq/L (98-107); Glomerular Filtration Rate Greater Than 89 mL/min (>89); Glucose,Random 115 mg/dL (74-106); Potassium 4.2 meq/L (3.5-5.1); Sodium 139 meq/L (136-145)
[2018-05-30 05:20] LABS: Alanine Aminotransferase 21 U/L (12-78); Alkaline Phosphatase 65 U/L (45-117); Phosphorus 1.7 mg/dL (2.5-4.9); Total Protein 6.1 g/dL (6.4-8.2)
[2018-05-30 06:50] LABS: Eosinophils 4 % (0-4); Lymphocytes 5 % (9-44); Monocytes 1 % (0-8)
[2018-05-30 06:51] LABS: Platelet Estimate Normal (Normal); Platelet Morphology Normal (Normal); Toxic Vacuolation Present
[2018-05-30] MEDS: Senna/Docusate Sodium 8.6/50 MG Tablet PO SCH ×2 (08:43→21:04)
[2018-05-30] MEDS: Famotidine 20 MG Tablet PO SCH ×2 (08:43→21:03)
[2018-05-30] MEDS ORDERED: Enoxaparin Inj 40 MG/0.4 ML Syringe SQ SCH (09:00)
--- NOTE | 2018-05-30 09:35 | P.CONID ---
History of Present Illness Service: Infectious disease Consult date: 05/30/18 Requesting Physician: Zaire Marc Reason for Consult: Evaluate patient with sepsis, IV drug use Primary Care Provider: Patrick Turner MD Chief Complaint: Body ache, feeling ill History of Present Illness: Patient seen and examined. Records reviewed. Patient is a 32-year-old male, presented to the hospital complaining of severe diffuse body aches and generalized weakness. Patient stated the day prior to admission that he worked really strenuously and longer than the usual duration. That night he started having body aches, and he thought it might just have been from overworking himself. His symptoms however worsened, and he stayed in bed, and has had very poor p.o. intake. He had some nausea but no vomiting. He really did not think that he had any fever, denies any chills or sweats. He has not had any respiratory complaint, diarrhea or any urinary complaints. He has known IV drug use and has been using over the last year. He usually injects in his left upper extremity, but occasionally injects on his right upper extremity, and stated that he missed when he injected in his right upper extremity, and has developed some swelling and redness. On presentation to the emergency room, he was found to have a white count of 60,000, and he was tachycardic. He appeared chronically ill, and he received 2 L of normal saline bolus. He was given vancomycin and Zosyn. Blood cultures were obtained. Regular echocardiogram did not show any vegetation. CT of the chest did not show any embolic lesions. CT of the abdomen and pelvis is showing some findings of infarct in his kidney. Patient at the time my exam is complaining of diffuse body ache, especially in both posterior thigh, back, neck, and bilateral rib cage. Infectious disease consultation has been requested to assist with evaluation and treatment of patient with sepsis, and known IV drug use. Review of Systems Constitutional: Reports fatigue, Reports lack of energy, Denies chills, Denies fever(s), Denies night sweats Eyes: Denies discharge, Denies dry eyes Ears, Nose, Mouth, and Throat: Reports neck pain, Denies difficulty swallowing, Denies ear pain, Denies facial pain, Denies headache(s), Denies nasal discharge , Denies sore throat Cardiovascular: Reports chest pain, Denies shortness of breath Respiratory: Denies chest congestion, Denies cough, Denies shortness of breath Gastrointestinal: Reports abdominal pain, Reports nausea, Denies constipation, Denies loose stools, Denies pain with swallowing, Denies vomiting Genitourinary: Denies difficulty urinating, Denies painful urination, Denies penile discharge Musculoskeletal: Reports back pain, Reports neck pain, Denies joint pain, Denies joint swelling, Denies numbness, Denies radiating pain into limb Skin/Breast: Reports redness, Reports wounds, Denies yellowing of the skin Neurologic: Denies headache(s) PMFSH - History History Provided By: Patient - Medical History Medical History: Medical History (Last Reviewed 05/30/18 @ 09:29 by Ivy Lafleur MD) Patient denies medical problems Patient denies significant medical history - Tobacco History Second Hand Smoke Exposure: Yes Tobacco Use In Past 30 Days: Yes Smoking Status: Current every day smoker Tobacco Type: Cigarettes - Alcohol History How Often Do You Have a Drink Containing Alcohol: Never - Substance Use History Substance History: Active Abuse - Substance Use Type Heroin Type: and dilaudid Status: Active Route Used: Intravenously Last Used: yesterday Reason for Use: Get High - Travel History Recent Travel in the [place] Within the Last 8 Weeks: No Recent Travel Out of the Country Within the Last 8 Weeks: No - Immunization History Tetanus Immunization: Unsure Medications and Allergies Active Medications: Active Medications Acetaminophen (Tylenol) 650 mg PO Q6H PRN PRN Reason: PAIN 1-10 AND/OR FEVER >101F Al Hydroxide/Mg Hydroxide (Milk Of Magnesia Liq) 30 ml PO Q12H PRN PRN Reason: Mild Constipation Albuterol (Duoneb Neb (Prn)) 1 ampul NEB Q2HR NEB PRN PRN Reason: WHEEZING Bisacodyl (Dulcolax Supp) 10 mg RECTAL DAILY PRN PRN Reason: SEVERE CONSITIPATION Chlorhexidine Gluconate (Chlorhexidine 2% Cloth) 3 pack TOPICAL DAILY@0400 [facility] Stop: 06/04/18 03:59 Last Admin: 05/30/18 04:08 Dose: 3 pack Chlorhexidine Gluconate (Chlorhexidine 2% Cloth) 3 pack TOPICAL DAILY@0400 PRN PRN Reason: Extra cloth needed Stop: 06/04/18 03:59 Enoxaparin Sodium (Lovenox Inj) 40 mg SQ DAILY [facility] Last Admin: 05/30/18 08:43 Dose: 40 mg Famotidine (Pepcid) 20 mg PO BID [facility] [place] Last Admin: 05/30/18 08:43 Dose: 20 mg Sodium Chloride (Ns Inj) 1,000 mls @ 0 mls/hr IV.SIG .Q0M [facility] Last Infusion: 05/29/18 10:37 Dose: Infused Sodium Chloride (Ns Inj) 800 mls @ 0 mls/hr IV.SIG .Q0M [facility] [place] Last Infusion: 05/29/18 11:26 Dose: Infused Potassium Chloride/Sodium Chloride (Ns + Kcl 20 Meq Inj) 1,000 mls @ 150 mls/ hr IV.CONT .Q6H40M [facility] [place] Last Admin: 05/30/18 08:51 Dose: 150 mls/hr Piperacillin/Tazobactam/Dextrose (Zosyn 4.5 Gm Premix) 4.5 gm in 100 mls @ 200 mls/hr IV.SIG Q6H [facility] [place] Last Infusion: 05/30/18 05:52 Dose: Infused Vancomycin HCl 1,500 mg/ (Sodium Chloride) 515 mls @ 250 mls/hr IV.SIG Q12H [facility] [place] Last Infusion: 05/30/18 00:31 Dose: Infused Potassium Chloride (Kcl 40 Meq Premix Inj) 40 meq in 100 mls @ 25 mls/hr IV.SIG Q2H PRN PRN Reason: For Potassium 2.8 - 3.2 mEq/L Potassium Chloride (Kcl 20 Meq Premix Inj) 20 meq in 100 mls @ 50 mls/hr IV.SIG Q2H PRN PRN Reason: For Potassium 3.3 - 3.5 mEq/L Potassium Chloride (Kcl 40 Meq Premix Inj) 40 meq in 100 mls @ 25 mls/hr IV.SIG UNSCH PRN PRN Reason: For Potassium 3.3 - 3.5 mEq/L Sodium Phosphate 30 mmol/ (Sodium Chloride) 260 mls @ 42 mls/hr IV.SIG UNSCH PRN PRN Reason: For Phosphorus < 2.5 mg/dL Potassium Phosphate 30 mmol/ (Sodium Chloride) 260 mls @ 42 mls/hr IV.SIG UNSCH PRN PRN Reason: SEE LABEL COMMENTS Magnesium Sulfate 4 gm/ Sodium (Chloride) 100 mls @ 50 mls/hr IV.SIG UNSCH PRN PRN Reason: For Magnesium 0.9 - 1.1 mg/dL Potassium Chloride (Kcl 20 Meq Premix Inj) 20 meq in 100 mls @ 50 mls/hr IV.SIG Q2H PRN PRN Reason: For Potassium 2.8 - 3.2 mEq/L Magnesium Sulfate 2 gm/ Sodium (Chloride) 100 mls @ 50 mls/hr IV.SIG UNSCH PRN PRN Reason: For Magnesium 1.2 - 1.6 mg/dL Multivitamins 10 ml/ Thiamine HCl 100 mg/ Folic Acid 1 mg/Sodium Chloride 511.2 mls @ 125 mls/hr IV.SIG Q24H [facility] [place] Stop: 06/01/18 01:06 Last Infusion: 05/30/18 02:30 Dose: Infused Lactulose (Lactulose Liq) 30 ml PO DAILY PRN PRN Reason: SEVERE CONSITIPATION Magnesium Oxide (Mag-Ox) 800 mg PO UNSCH PRN PRN Reason: For Magnesium 1.2 - 1.6 mg/dL Ondansetron HCl (Zofran Inj) 4 mg IV.PUSH Q6H PRN PRN Reason: NAUSEA OR VOMITING Oxycodone/Acetaminophen (Percocet 5/325 Mg) 2 tab PO Q4H PRN PRN Reason: PAIN SCALE 1 TO 5 Last Admin: 05/30/18 08:43 Dose: 2 tab Potassium Bicarb/Potassium Chloride (K-Lyte Cl Eff) 50 meq PO UNSCH PRN PRN Reason: For Potassium 3.3 - 3.5 mEq/L Potassium Phosphate (K-Phos Original) 2,000 mg PO Q4H PRN PRN Reason: Phosphorus Less Than 2.5 mg/dL Potassium Phosphate (K-Phos Original) 2,000 mg PO UNSCH PRN PRN Reason: SEE LABEL COMMENTS Senna/Docusate Sodium (Leonor-Colace) 1 tab PO BID [facility] [place] Last Admin: 05/30/18 08:43 Dose: 1 tab Sennosides (Senokot) 17.2 mg PO Q12H PRN PRN Reason: Moderate Constipation Sodium Chloride (Ns Flush) 2 ml IV.FLUSH BID [facility] [place] Last Admin: 05/30/18 08:52 Dose: 2 ml Sodium Chloride (Ns Flush) 2 ml IV.FLUSH PRN PRN PRN Reason: FLUSH AFTER USING IV ACCESS Allergies Allergy/AdvReac Type Severity Reaction Status Date / Time No Known Allergies Allergy none Uncoded 05/29/18 14:40 Home Medications Medication Instructions Recorded Confirmed Type No Known Home Medications 05/29/18 05/29/18 History Exam Vital signs: Vital Signs 05/29/18 09:24 05/29/18 10:30 05/29/18 12:35 Temperature 98.8 F Pulse Rate 130 H 113 H 103 H Respiratory Rate 20 16 Blood Pressure 124/79 115/56 L Pulse Oximetry 97 95 05/29/18 14:27 05/29/18 15:30 05/29/18 16:30 Temperature 98.3 F Pulse Rate 106 H 114 H 112 H Respiratory Rate 16 20 16 Blood Pressure 102/58 L 112/67 112/58 L Pulse Oximetry 96 97 95 05/29/18 17:30 05/29/18 18:30 05/29/18 20:00 Temperature 99.1 F Pulse Rate 116 H 110 H 112 H Respiratory Rate 16 16 16 Blood Pressure 119/66 103/56 L 119/58 L Pulse Oximetry 96 95 100 05/30/18 00:00 05/30/18 03:50 05/30/18 04:00 Temperature 99 F 98.5 F Pulse Rate 112 H 92 H Respiratory Rate 18 16 16 Blood Pressure 111/53 L 103/66 Pulse Oximetry 99 100 Intake & Output 05/29/18 05/30/18 05/30/18 18:59 06:59 18:59 Intake Total 2150 / 2150 3406.2 / 3406.2 1000 / 1000 Output Total 1650 / 1650 Balance 2150 / 2150 1756.2 / 1756.2 1000 / 1000 Weight 58.6 kg 59.8 kg Intake: IV 2150 / 2150 2926.2 / 2926.2 1000 / 1000 NS + KCl 20 mEq Inj 1,000 ML @ 1600 / 1600 1000 / 1000 150 mls/hr IV.CONT .Q6H40M [facility] Rx#:[id number] MVI-12 Inj 10 ML Thiamine Inj 511.2 / 511.2 100 MG Folvite Inj 1 MG In NS Inj 500 ML @ 125 mls/hr IV.SIG Q24H [facility] Rx#:[id number] Zosyn 4.5 GM Premix 4.5 gm In 100 / 100 300 / 300 100 ml @ 200 mls/hr IV.SIG Q6H [facility] Rx#:[id number] NS Inj 800 ML @ Wide Open IV. 1800 / 1800 SIG .Q0M [facility] Rx#:[id number] Vancomycin Inj 1,000 MG In NS 250 / 250 Inj 250 ML @ 250 mls/hr IV.SIG ONCE ONE Rx#:[id number] Vancomycin Inj 1,500 MG In NS 515 / 515 Inj 500 ML @ 250 mls/hr IV.SIG Q12H [facility] Rx#:[id number] Oral 480 / 480 Output: Urine 1650 / 1650 Other: Weight On Admission 59.1 kg Narrative: Physical examination GENERAL: Patient is a thin, well-developed male, awake and alert, not in respiratory distress. Has severe generalized pain when he moves SKIN: Warm and dry. No generalized rash, no ecchymoses and no evidence of embolic lesions. Has an area of erythema and induration in his proximal volar aspect of forearm, with green necrotic slough in center, not fluctuant, no crepitus HEAD: Atraumatic. Normocephalic. No temporal wasting, or tenderness. EYES: Osborne conjunctiva. No petechia or hemorrhage. Pupils equal, round and reactive to light. Extraocular movements full and intact. No scleral icterus. No injection or drainage. EARS, NOSE AND THROAT: Nose without bleeding or purulent nasal discharge. No sinus tenderness. Mucous membranes pink and moist. No oral lesions noted. No exudate. Some white coating on his tongue NECK: Trachea midline. Supple and not tender, no meningeal signs CARDIOVASCULAR: Regular rate and rhythm. No murmurs, rubs or gallops heard. Has tenderness on palpation of lateral ribs RESPIRATORY: Clear to auscultation. Breath sounds equal bilaterally. No rales , wheezing or rhonchi ABDOMEN: Soft, flat, with diffuse tenderness, no guarding, no rebound, nondistended. Bowel sounds present and normoactive. No organomegaly. EXTREMITIES: No clubbing, cyanosis, or edema. No joint effusion, has good ROM. No calf tenderness. Well perfused and warm. NEUROLOGICAL: Awake and alert. Cranial nerves grossly intact. Motor grossly within normal limits. PSYCHIATRIC: Anxious when I asked him to turn to his side LINE: No evidence of infection Results - Labs CBC & Chem 7: 05/30/18 04:39 05/30/18 04:39 Labs: Laboratory Results - last 24 hr 05/29/18 05/29/18 05/29/18 09:45 09:45 09:45 CBC w Diff Slide review pending WBC 60.5 H RBC 5.02 Hgb 14.4 Hct 41.6 MCV 82.8 MCH 28.6 MCHC 34.5 RDW 13.5 Plt Count 349 MPV 8.4 Prelim Diff (Auto) Neut % (Auto) Lymph % (Auto) Davison % (Auto) Eos % (Auto) Baso % (Auto) Neut # (Auto) Lymph # (Auto) Davison # (Auto) Eos # (Auto) Baso # (Auto) WBC Differential Manual diff final Seg Neuts % (Manual) 87 H Band Neuts % (Manual) 9 H Lymphocytes % (Manual) 2 L Monocytes % (Manual) Eosinophils % (Manual) Metamyelocytes % (Man) 1 Myelocytes % (Man) 1 H Abs Neuts (Manual) 59.3 H Differential Comment . Toxic Vacuolation Platelet Estimate Normal Platelet Morphology Normal PT 13.4 H INR 1.3 APTT 39.4 H Sodium Potassium Chloride Carbon Dioxide Anion Gap BUN Creatinine Estimated GFR POC Glucose Random Glucose Lactic Acid 1.8 Calcium Phosphorus Magnesium Total Bilirubin AST ALT Alkaline Phosphatase Total Creatine Kinase Troponin I Total Protein Albumin Ur Collection Type Urine Color Urine Clarity Urine pH Ur Specific [place] Urine Protein Urine Glucose (UA) Urine Ketones Urine Occult Blood Urine Nitrate Urine Bilirubin Urine Urobilinogen Ur Leukocyte Esterase Urine WBC Urine WBC Clumps Ur Squamous Epith Cells Micro UA Comment Ur Microscopic Review Urine Culture Comments Nasal Screen MRSA (PCR) 05/29/18 05/29/18 05/29/18 09:48 09:48 10:03 CBC w Diff WBC RBC Hgb Hct MCV MCH MCHC RDW Plt Count MPV Prelim Diff (Auto) Neut % (Auto) Lymph % (Auto) Davison % (Auto) Eos % (Auto) Baso % (Auto) Neut # (Auto) Lymph # (Auto) Davison # (Auto) Eos # (Auto) Baso # (Auto) WBC Differential Seg Neuts % (Manual) Band Neuts % (Manual) Lymphocytes % (Manual) Monocytes % (Manual) Eosinophils % (Manual) Metamyelocytes % (Man) Myelocytes % (Man) Abs Neuts (Manual) Differential Comment Toxic Vacuolation Platelet Estimate Platelet Morphology PT INR APTT Sodium 128 L Potassium 4.4 Chloride 93 L Carbon Dioxide 26.3 Anion Gap 9 BUN 16 Creatinine 1.10 Estimated GFR 78 L POC Glucose 134 H Random Glucose 134 H Lactic Acid Calcium 8.5 Phosphorus Magnesium 1.8 Total Bilirubin 1.7 H AST 16 ALT 31 Alkaline Phosphatase 80 Total Creatine Kinase 26 L Troponin I Less than 0.02 L Total Protein 7.8 Albumin 2.9 L Ur Collection Type Urine Color Urine Clarity Urine pH Ur Specific [place] Urine Protein Urine Glucose (UA) Urine Ketones Urine Occult Blood Urine Nitrate Urine Bilirubin Urine Urobilinogen Ur Leukocyte Esterase Urine WBC Urine WBC Clumps Ur Squamous Epith Cells Micro UA Comment Ur Microscopic Review Urine Culture Comments Nasal Screen MRSA (PCR) 05/29/18 05/29/18 05/29/18 10:16 21:00 21:03 CBC w Diff WBC 49.2 H RBC 4.70 Hgb 13.0 Hct 39.0 MCV 83.1 MCH 27.8 MCHC 33.4 RDW 14.5 Plt Count 301 MPV 7.6 Prelim Diff (Auto) Neut % (Auto) Lymph % (Auto) Davison % (Auto) Eos % (Auto) Baso % (Auto) Neut # (Auto) Lymph # (Auto) Davison # (Auto) Eos # (Auto) Baso # (Auto) WBC Differential Seg Neuts % (Manual) Band Neuts % (Manual) Lymphocytes % (Manual) Monocytes % (Manual) Eosinophils % (Manual) Metamyelocytes % (Man) Myelocytes % (Man) Abs Neuts (Manual) Differential Comment Toxic Vacuolation Platelet Estimate Platelet Morphology PT INR APTT Sodium Potassium Chloride Carbon Dioxide Anion Gap BUN Creatinine Estimated GFR POC Glucose Random Glucose Lactic Acid Calcium Phosphorus Magnesium Total Bilirubin AST ALT Alkaline Phosphatase Total Creatine Kinase Troponin I Total Protein Albumin Ur Collection Type Clean catch Urine Color Yellow Urine Clarity Clear Urine pH 5.5 Ur Specific [place] 1.010 Urine Protein Negative Urine Glucose (UA) Negative Urine Ketones Negative Urine Occult Blood Negative Urine Nitrate Negative Urine Bilirubin Negative Urine Urobilinogen 0.2 Ur Leukocyte Esterase Negative Urine WBC 6-8 H Urine WBC Clumps Occasional H Ur Squamous Epith Cells 0-5 Micro UA Comment Culture indicated Ur Microscopic Review Microscopic reviewed Urine Culture Comments Culture indicated Nasal Screen MRSA (PCR) Not detected 05/29/18 05/30/18 05/30/18 21:30 04:39 04:39 CBC w Diff WBC 37.6 H RBC 4.17 L Hgb 11.7 L Hct 34.4 L MCV 82.6 MCH 28.0 MCHC 33.9 RDW 14.6 Plt Count 264 MPV 7.4 Prelim Diff (Auto) Slide review pending Neut % (Auto) 94.1 H Lymph % (Auto) 2.9 L Davison % (Auto) 1.3 Eos % (Auto) 1.7 Baso % (Auto) 0.0 Neut # (Auto) 35.4 H Lymph # (Auto) 1.1 Davison # (Auto) 0.5 Eos # (Auto) 0.6 H Baso # (Auto) 0.0 WBC Differential Manual diff final Seg Neuts % (Manual) 80 H Band Neuts % (Manual) 10 H Lymphocytes % (Manual) 5 L Monocytes % (Manual) 1 Eosinophils % (Manual) 4 Metamyelocytes % (Man) Myelocytes % (Man) Abs Neuts (Manual) 33.8 H Differential Comment . Toxic Vacuolation Present H Platelet Estimate Normal Platelet Morphology Normal PT 11.7 H INR 1.2 APTT 35.0 H Sodium Potassium Chloride Carbon Dioxide Anion Gap BUN Creatinine Estimated GFR POC Glucose Random Glucose Lactic Acid 2.2 H Calcium Phosphorus Magnesium Total Bilirubin AST ALT Alkaline Phosphatase Total Creatine Kinase Troponin I Total Protein Albumin Ur Collection Type Urine Color Urine Clarity Urine pH Ur Specific [place] Urine Protein Urine Glucose (UA) Urine Ketones Urine Occult Blood Urine Nitrate Urine Bilirubin Urine Urobilinogen Ur Leukocyte Esterase Urine WBC Urine WBC Clumps Ur Squamous Epith Cells Micro UA Comment Ur Microscopic Review Urine Culture Comments Nasal Screen MRSA (PCR) 05/30/18 05/30/18 04:39 04:39 CBC w Diff WBC RBC Hgb Hct MCV MCH MCHC RDW Plt Count MPV Prelim Diff (Auto) Neut % (Auto) Lymph % (Auto) Davison % (Auto) Eos % (Auto) Baso % (Auto) Neut # (Auto) Lymph # (Auto) Davison # (Auto) Eos # (Auto) Baso # (Auto) WBC Differential Seg Neuts % (Manual) Band Neuts % (Manual) Lymphocytes % (Manual) Monocytes % (Manual) Eosinophils % (Manual) Metamyelocytes % (Man) Myelocytes % (Man) Abs Neuts (Manual) Differential Comment Toxic Vacuolation Platelet Estimate Platelet Morphology PT INR APTT Sodium 139 D Potassium 4.2 Chloride 108 H D Carbon Dioxide 24.3 Anion Gap 7 BUN 9 Creatinine 0.76 Estimated GFR Greater than 89 POC Glucose Random Glucose 115 H Lactic Acid 1.1 Calcium 7.9 L Phosphorus 1.7 L Magnesium 2.0 Total Bilirubin 0.9 AST 13 L ALT 21 Alkaline Phosphatase 65 Total Creatine Kinase Troponin I Total Protein 6.1 L D Albumin 2.2 L D Ur Collection Type Urine Color Urine Clarity Urine pH Ur Specific [place] Urine Protein Urine Glucose (UA) Urine Ketones Urine Occult Blood Urine Nitrate Urine Bilirubin Urine Urobilinogen Ur Leukocyte Esterase Urine WBC Urine WBC Clumps Ur Squamous Epith Cells Micro UA Comment Ur Microscopic Review Urine Culture Comments Nasal Screen MRSA (PCR) - Imaging Impressions Head CT 05/29/18 00:00 CONCLUSION: 1. No acute intracranial abnormalities. . Chest X-Ray 05/29/18 09:24 CONCLUSION: No acute cardiopulmonary disease. Abdomen/Pelvis CT 05/29/18 11:13 CONCLUSION: 1. Focal wedge-shaped area of decreased attenuation involving the posterior lateral right mid knee with overlying apparent cortical thinning. This is nonspecific and could represent an area of scarring or infarction. The kidneys are otherwise unremarkable. 2. Unremarkable bowel gas pattern. 3. Unremarkable appearing gallbladder. Chest CT 05/29/18 11:13 CONCLUSION: 1. No focal pneumonia identified. 2. Mildly enlarged nodes in the axillary eulalia chain. There is a 2 cm node in the right axilla. There is a 1.6 cm node in the left axilla. Assessment and Plan - Plan Impression Sepsis on admission, Hx IVDU, has findings suggestive of L sided IE Cellulitis RUE Known active IDU Diffuse body aches due to sepsis Back pain Recommendation Agree with ANTHONY May need imaging of his back if back pain persists Follow C/S Baseline ESR and CRP Continue Vanco and Zosyn empiric Rx - adjust Abx once C/S available Monitor progress Further recommendations to follow once work-up completed I will follow along with you Thank you for this consultation
[2018-05-30] MEDS: Vancomycin Inj 1,500 MG in Sodium Chlor 0.9% Inj 500 ML IV.SIG SCH ×2 (10:57→21:04)
[2018-05-30] MEDS ORDERED: Zolpidem Tartrate 5 MG Tablet PO PRN (11:05)
[2018-05-30] MEDS: Morphine Inj 4 MG/ML Vial IV.PUSH PRN ×3 (11:41→23:52)
--- NOTE | 2018-05-30 12:55 | P.PNCC ---
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 He admits that last injection of heroin was yesterday. Denies fever however felt palpitations. Had been ill for last 2 days. Patient was tachycardic in the ER. White count was 60.5 with left shift. Sodium was 128. Patient also has a superficial abscess right forearm volar aspect. CT of the abdomen shows probable right kidney infarct. Clinical picture consistent with probable infective endocarditis and severe sepsis and critical care medicine was consulted for admission. A 2D echo done in [facility] emergency department shows normal EF and no vegetations reported. ANTHONY had been ordered I evaluated the patient in the ICU. He appears critically ill malnourished tachycardic. He received total 2 L normal saline bolus and now receiving maintenance IV fluids. He had been started on vancomycin and Zosyn. ID had been consulted, I will get a ANTHONY. At this time he is very critical we will watch closely for withdrawal also. 05/30: Resting in bed comfortably on room air. Complains of pain all over. Denies any shortness of breath, nausea. No hypotension since admission. Objective Vital Signs / I&O: Vital Signs 05/29/18 14:27 05/29/18 15:30 05/29/18 16:30 Temperature 98.3 F Pulse Rate 106 H 114 H 112 H Respiratory Rate 16 20 16 Blood Pressure 102/58 L 112/67 112/58 L Pulse Oximetry 96 97 95 05/29/18 17:30 05/29/18 18:30 05/29/18 20:00 Temperature 99.1 F Pulse Rate 116 H 110 H 112 H Respiratory Rate 16 16 16 Blood Pressure 119/66 103/56 L 119/58 L Pulse Oximetry 96 95 100 05/30/18 00:00 05/30/18 03:50 05/30/18 04:00 Temperature 99 F 98.5 F Pulse Rate 112 H 92 H Respiratory Rate 18 16 16 Blood Pressure 111/53 L 103/66 Pulse Oximetry 99 100 05/30/18 08:00 05/30/18 09:00 05/30/18 09:13 Temperature 98.4 F Pulse Rate 89 96 H Respiratory Rate 27 H 28 H Blood Pressure 119/61 Pulse Oximetry 100 Intake & Output 05/29/18 05/30/18 05/30/18 18:59 06:59 18:59 Intake Total 2150 / 2150 3406.2 / 3406.2 1000 / 1000 Output Total 1650 / 1650 Balance 2150 / 2150 1756.2 / 1756.2 1000 / 1000 Weight 58.6 kg 59.8 kg Intake: IV 2150 / 2150 2926.2 / 2926.2 1000 / 1000 NS + KCl 20 mEq Inj 1,000 ML @ 1600 / 1600 1000 / 1000 150 mls/hr IV.CONT .Q6H40M [facility] Rx#:[id number] MVI-12 Inj 10 ML Thiamine Inj 511.2 / 511.2 100 MG Folvite Inj 1 MG In NS Inj 500 ML @ 125 mls/hr IV.SIG Q24H [facility] Rx#:[id number] Zosyn 4.5 GM Premix 4.5 gm In 100 / 100 300 / 300 100 ml @ 200 mls/hr IV.SIG Q6H [facility] Rx#:[id number] NS Inj 800 ML @ Wide Open IV. 1800 / 1800 SIG .Q0M [facility] Rx#:[id number] Vancomycin Inj 1,000 MG In NS 250 / 250 Inj 250 ML @ 250 mls/hr IV.SIG ONCE ONE Rx#:[id number] Vancomycin Inj 1,500 MG In NS 515 / 515 Inj 500 ML @ 250 mls/hr IV.SIG Q12H [facility] Rx#:[id number] Oral 480 / 480 Output: Urine 1650 / 1650 Other: Weight On Admission 59.1 kg Result Diagrams: 05/30/18 04:39 05/30/18 04:39 Objective Remarks: GENERAL: Young poorly nourished male who appears ill SKIN: warm/dry. Track ross in his right and left AC area. Skin blister/ abscess volar right forearm. HEAD: Atraumatic. Normocephalic. EYES: Extraocular muscles were intact. No scleral icterus. ENT: Oral mucosa is dry NECK: Trachea midline. Supple. CARDIOVASCULAR: S1-S2 regular. Systolic murmur at the left sternal border RESPIRATORY: No accessory muscle use. Clear to auscultation. Breath sounds equal bilaterally. GASTROINTESTINAL: Abdomen soft, non-tender, nondistended. Hepatic and splenic margins not palpable. MUSCULOSKELETAL: See skin exam above no obvious deformities. No clubbing. No cyanosis. No edema. NEUROLOGICAL: Awake and alert. No obvious cranial nerve deficits. Motor grossly within normal limits. Normal speech. Assessment and Plan - Problem List (1) Severe sepsis Code(s): A41.9 - Sepsis, unspecified organism; R65.20 - Severe sepsis without septic shock Status: Acute (2) Infarction of kidney Code(s): N28.0 - Ischemia and infarction of kidney Status: Acute (3) Leukocytosis Code(s): D72.829 - Elevated white blood cell count, unspecified Status: Acute (4) Abscess of right forearm Code(s): L02.413 - Cutaneous abscess of right upper limb Status: Acute (5) Cellulitis of forearm, right Code(s): L03.113 - Cellulitis of right upper limb Status: Acute - Assessment and Plan Plan: NEURO: IV heroin use -Admits to daily heroin use -Watch closely for withdrawal -Need counseling/treatment -Supplement multivitamin thiamine -CT of the head unremarkable RESP: -DuoNeb every 2 hours as needed -Aggressive pulmonary toilet CV: Sinus tachycardia SIRS Suspected infective endocarditis -Normal saline IV fluids 2 L bolus and maintenance fluid at 84 mL/h -2D echo shows normal ejection fraction, trace TR -ANTHONY ordered to rule out infective endocarditis. Dr. Graham from cardiology consulted. Discussed with Dr. Graham will perform ANTHONY on 05/31 -Antibiotics as below GI: -N.p.o. until clinically more stable, IV famotidine : Right renal infarct Hyponatremia -Probable septic emboli -Monitor renal function closely. -IV hydration as above -Low-sodium correction ID: Severe sepsis Suspected infective endocarditis Right forearm abscess -Antibiotics with vancomycin and Zosyn -Blood cultures have been ordered, ID consult -Surgery evaluation for I&D -Abscess appears superficial HEME: Leukocytosis secondary to sepsis -Monitor CBC, coags ENDO: -Electrolyte replacement per protocol PROPH: -Bilateral lower extremity SCDs. Lovenox if CT head is negative/famotidine LINES: -Utilize peripheral IVs, central line if needed
[2018-05-30] MEDS ORDERED: Gadobutrol PF 7.5 MMOL/7.5 ML Vial (for RAD) IV.SIG ONE (15:46)
--- NOTE | 2018-05-30 15:51 | MR ---
EXAM DATE: 05/30/2018 3:48 PM EDT AGE/SEX: 32 years / Male INDICATIONS: Pain. Sepsis and IVDU. CLINICAL DATA: This is the patient's initial encounter. Patient reports that signs and symptoms have been present for 1 day and indicates a pain score of 8/10. MEDICAL/SURGICAL HISTORY: None. None. COMPARISON: . TECHNIQUE: Multiplanar, multisequence MRI examination of the lumbar spine was performed without and with 6 ml Gadavist (gadobutrol) contrast as a single exam dose. FINDINGS: The most caudal-appearing lumbar vertebra is numbered as L5. Vertebra: Homogeneous signal. Normal alignment. Conus: Normal level and configuration. Post Contrast: No abnormal areas of contrast enhancement are seen. T12-L1: The thecal sac has a normal diameter. No evidence of disc bulge or protrusion. The neural foramina are patent bilaterally. L1-L2: The thecal sac has a normal diameter. No evidence of disc bulge or protrusion. The neural foramina are patent bilaterally. L2-L3: The thecal sac has a normal diameter. No evidence of disc bulge or protrusion. The neural foramina are patent bilaterally. L3-L4: The thecal sac has a normal diameter. No evidence of disc bulge or protrusion. The neural foramina are patent bilaterally. L4-L5: The thecal sac has a normal diameter. No evidence of disc bulge or protrusion. The neural foramina are patent bilaterally. L5-S1: The thecal sac has a normal diameter. No evidence of disc bulge or protrusion. The neural foramina are patent bilaterally. CONCLUSION: 1. Negative MR Lumbar Spine with and without contrast. Electronically signed by: Rustam Ding MD 05/30/2018 3:50 PM EDT
[2018-05-30] MEDS: Multivitamin Inj 10 ML, Thiamine Inj 100 MG, Folic Acid Inj 1 MG in Sodium Chlor 0.9% I... IV.SIG SCH (21:03)
--- NOTE | 2018-05-30 21:56 | MB ---
cc: Iraj LARA DATE: 05/30/2018 DATE OF SERVICE: 05/30/2018. CHIEF COMPLAINT: Right hand, questionable abscess REQUESTING PHYSICIAN: Dr. Marc. CONSULTING PHYSICIAN: Dr. Alcantar. HISTORY OF PRESENT ILLNESS: Mr. Saldana is a 32-year-old right-hand dominant male with history significant for IV drug use with heroin. He presented to [facility] complaining of right upper extremity pain, body aches and generalized weakness. He has been admitted to the intermediate care unit under the care of the critical care team, as well as infectious disease. On presentation at bedside, he endorses a right volar forearm wound which he identifies as the location where he injects heroin. He notes that over the last few days, the location has become increasingly painful with associated edema and erythema. He denies previous infection to the right upper extremity. He denies paresthesias to the right upper extremity. He denies other pain complaints. He rates his pain 4/10. PAST MEDICAL HISTORY: Significant for IV drug use with heroin. PAST SURGICAL HISTORY: None. MEDICATIONS: None. ALLERGIES: NONE. SOCIAL HISTORY: Significant for heroin use, a current everyday smoker, 1 pack per day. REVIEW OF SYSTEMS: GENERAL: Endorses fever, chills, fatigue. CARDIOVASCULAR: Denies chest pain or shortness of breath. RESPIRATORY: Denies cough or shortness of breath. GASTROINTESTINAL: Endorses abdominal pain and nausea. Denies constipation. MUSCULOSKELETAL: Relates back pain and right upper extremity pain. SKIN: Positive for redness, swelling. NEUROLOGIC: Denies numbness, tingling. PHYSICAL EXAMINATION: VITAL SIGNS: Temperature of 98.6, pulse rate is 85, blood pressure 110/60. GENERAL: He is alert and oriented x3 with a normal mood and affect. HEART: Regular rate and rhythm. LUNGS: Nonlabored breathing. ABDOMEN: Flat, nondistended. NEUROLOGIC: Sensation intact in the median, radial, ulnar nerve distribution to the right upper extremity. SKIN: Significant for erythema and edema of the upper extremity. MUSCULOSKELETAL: Focused evaluation of the right upper extremity demonstrates a focal raised soft tissue prominence about the proximal aspect of the volar forearm. This area is indurated with no palpable underlying fluctuance. There is a halo of erythema surrounding this area with erythema extending distally to the forearm. This is mildly tender to palpation. There is positive EPL/FPL/MPS/DUST HAND[employer]ER/EC/finger abduction/adduction. There is a 2+ radial pulse. There is painless passive range of motion of the elbow, wrist and hand. LABORATORY DATA: White blood cell count of 37.6 (turning down from 60.5 at time of admission on 05/29). ASSESSMENT: A 32-year-old male with history significant for IV heroin use, presents with right upper extremity cellulitis and is admitted to the [facility] for severe sepsis. Hand surgery consultation requested for evaluation of the right forearm. PLAN: On evaluation at bedside, the patient has a focal induration to the volar forearm at the site where he routinely checks. There is no appreciable fluctuance to this region. Rather, there is diffuse erythema and swelling about the forearm consistent with a diagnosis of cellulitis. I cannot appreciate a deep abscess on clinical exam. As such, I would recommend continued medical management. The patient endorses subjective improvement with objective improvement and leukocytosis at the time of admission. No plan for surgical indication at this point in time. Please do make the patient n.p.o. on Sunday for repeat assessment. If the patient's clinical status deteriorates or does not improve, would consider MRI; however, at this point, it appears that he is making clinical improvement with IV antibiotics alone. Please do not hesitate to contact hand surgery with any questions or concerns regarding his care. Iraj Alcantar MD, CM/luis manuel , 07:45 PM , 07:58 PM
--- NOTE | 2018-05-30 22:25 | MB ---
cc: Eduardo Graham DO DATE: 05/30/2018 REASON FOR CONSULTATION: Consideration of ANTHONY. HISTORY OF PRESENT ILLNESS: April Saldana is a 32-year-old male who presented to [facility] due to diffuse body aches and weakness. He admits to injecting heroin and his last dose was the day before admission. He denies fevers, but has felt some palpitations and chills. He has felt ill for the past 2 days. On arrival, he was tachycardic but hemodynamically stable. He has a white count of 60.5. He does have a superficial abscess on his right forearm and an infarction of his right kidney. It was felt that he probably has endocarditis and I was asked to perform a ANTHONY to rule out endocarditis. In seeing him, he is currently hemodynamically stable in the ICU with no complaints. PAST MEDICAL HISTORY: IV drug abuse. PAST SURGICAL HISTORY: Denies. ALLERGIES: NO KNOWN DRUG ALLERGIES. MEDICATIONS: Denies. FAMILY HISTORY: Denies premature coronary artery disease or sudden cardiac within the family. SOCIAL HISTORY: The patient admits to smoking cigarettes. He denies alcohol abuse. He injects heroin and Dilaudid intravenously. REVIEW OF SYSTEMS: Fourteen systems were reviewed including osteopathic. Pertinent positives and negatives above, otherwise negative. PHYSICAL EXAMINATION: VITAL SIGNS: Temperature 98.6, heart rate 89, blood pressure 114/78, respirations 30, pulse oximetry 99% on room air. GENERAL: The patient is a poorly nourished male who appears somewhat ill. HEENT: Extraocular muscles intact. Mucous membranes moist. NECK: Supple. No JVD at 45 degrees. No carotid bruits heard bilaterally. Carotid upstroke is brisk in nature. HEART: Tachycardic. Positive first and second heart sounds with a 1/6 crescendo decrescendo murmur noted at the left sternal border. LUNGS: Clear to auscultation bilaterally. No wheezes, rales or rhonchi. ABDOMEN: Soft, nontender, nondistended. No organomegaly noted. EXTREMITIES: Show no clubbing, cyanosis or edema. Track ross are noted on both arms. The right arm has what appears to be erythema with possible abscess. NEUROLOGIC: No focal deficits. SKIN: Warm, dry and intact except for where possible abscess is noted. OSTEOPATHIC: No kyphoscoliosis or lordosis. LABORATORY DATA: Hemoglobin 11.7, hematocrit 34.4, platelets 264. Potassium 4.2, BUN 9, creatinine 0.76. Lactic acid 2.2. Troponin less than 0.02. CRP 12. Electrocardiogram (05/29/2018 at 0901 hours), sinus rhythm, nonspecific ST-T wave changes. IMPRESSION: 1. Intravenous drug abuse with heroin and Dilaudid. 2. Tachycardia, most likely due to sepsis. 3. Presumed endocarditis. 4. Kidney infarct. 5. Leukocytosis. 6. Lactic acidosis. 7. Tobacco abuse. RECOMMENDATIONS: 1. April Saldana presented with IV drug abuse and was found to have an infarct of his kidney. 2. He has presumed endocarditis and this should be ruled out. Nothing was seen on the echocardiogram transthoracically, but as he is high risk, I agree that he should undergo a transesophageal echocardiogram. 3. The risks, benefits and alternatives were explained to him and he consented to such. 4. He will be n.p.o. after midnight and this will be done tomorrow. 5. I spoke to him for greater than 3 minutes about tobacco cessation. 6. Further recommendations will be made after the transesophageal echocardiogram. Thank you for allowing me to see April Saldana. If there are any questions, please do not hesitate to call. DO JESSICA Segura/gerardo , 09:44 PM , 09:57 PM
[2018-05-31] MEDS: Piperacil/Tazo 4.5 GM Premix 4.5 GM/100 ML BAG IV.SIG SCH ×2 (00:03→05:52)
[2018-05-31] MEDS: Chlorhexidine Gluconate 2% 1 Pack (2 Cloths) TOPICAL SCH (04:17)
[2018-05-31] MEDS: Morphine Inj 4 MG/ML Vial IV.PUSH PRN (05:52)
--- NOTE | 2018-05-31 12:56 | P.PNOP ---
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 He notes his pain continues to improve to the right arm. He denies other complaints. Physical Exam Vital signs: Vital Signs 05/30/18 16:00 05/30/18 17:49 05/30/18 20:00 Temperature 98.6 F 98.8 F Pulse Rate 85 89 Respiratory Rate 22 14 Blood Pressure 110/60 118/73 Pulse Oximetry 99 100 05/31/18 00:00 05/31/18 04:00 Temperature 98.7 F 98.8 F Pulse Rate 82 70 Respiratory Rate 26 H 12 Blood Pressure 130/81 121/79 Pulse Oximetry 100 100 Intake & Output 05/30/18 05/31/18 05/31/18 18:59 06:59 18:59 Intake Total 3300 / 3300 3741.2 / 3741.2 Output Total 2099 / 2099 2575 / 2575 Balance 1200 / 1200 1166.2 / 1166.2 Weight 60 kg Intake: IV 2099 / 2099 3441.2 / 3441.2 NS + KCl 20 mEq Inj 1,000 ML @ 2000 / 2000 1600 / 1600 150 mls/hr IV.CONT .Q6H40M [facility] Rx#:[id number] MVI-12 Inj 10 ML Thiamine Inj 511.2 / 511.2 100 MG Folvite Inj 1 MG In NS Inj 500 ML @ 125 mls/hr IV.SIG Q24H [facility] Rx#:[id number] Zosyn 4.5 GM Premix 4.5 gm In 100 / 100 300 / 300 100 ml @ 200 mls/hr IV.SIG Q6H [facility] Rx#:[id number] Vancomycin Inj 1,500 MG In NS 1030 / 1030 Inj 500 ML @ 250 mls/hr IV.SIG Q12H [facility] Rx#:[id number] Oral 1200 / 1200 300 / 300 Output: Urine 2099 / 2099 2575 / 2575 Other: # Voids 10 Date of Last Bowel Movement 05/30/18 05/31/18 # Bowel Movements 1 2 - Constitutional no acute distress - Routine Extremities Exam Comments: Focused evaluation of the right upper extremity demonstrates focal induration over the volar forearm with a circumferential region of erythema. There is no evident drainage. No palpable fluctuance. Mild tenderness to palpation. Erythema has improved along the forearm. There is full, painless elbow and wrist range of motion. Sensation is intact in the median, radial, ulnar nerve distribution. Results - Labs CBC & Chem 7: 05/30/18 04:39 05/30/18 04:39 Microbiology 05/29/18 09:50 Blood - Peripheral Aerobic Blood Culture - Preliminary No growth in 2 days 05/29/18 09:50 Blood - Peripheral Anaerobic Blood Culture - Preliminary No growth in 2 days 05/29/18 09:45 Blood - Peripheral Aerobic Blood Culture - Preliminary No growth in 2 days 05/29/18 09:45 Blood - Peripheral Anaerobic Blood Culture - Preliminary No growth in 2 days 05/29/18 10:16 Clean Catch Urine Urine Culture - Final No growth in 48 hours - Imaging Impressions Lumbar Spine MRI 05/30/18 00:00 CONCLUSION: 1. Negative MR Lumbar Spine with and without contrast. Assessment and Plan - Assessment and Plan 32-year-old male presents with severe sepsis with right upper extremity cellulitis. Orthopedic hand surgery consultation requested for evaluation of right forearm induration. On examination today he has interval improvement in his cellulitis. There remains no evidence of abscess. On my evaluation at bedside he has requested to leave AGAINST MEDICAL ADVICE. I strongly discouraged this with the patient noting that his leukocytosis remains high and that inpatient admission is still warranted. He understands the ramifications of leaving AGAINST MEDICAL ADVICE possibly including . Recommend continued medical management with IV antibiotics with eventual transition to oral regimen, should patient elect to stay. He may follow up with primary care on discharge for a wound check. Hand surgery to sign off at this point in time. Please do not hesitate to contact hand surgery with any other questions or concerns regarding his care.
== END 2018-05-31 07:55 | disposition left against medical advice (07) ==
LOC: PHED 08:49 → PHEDA 11:29 → HIMC 19:25
PROVIDERS: ADMIT Internal Medicine Critical Care Medicine; ATTEND Internal Medicine Critical Care Medicine